=== PATIENT | female | born 1995 | race Caucasian/White ===

== ENCOUNTER 2018-12-20 21:05 | Emergency (ER) | payer OTHER ==
[2018-12-20 21:49] LABS: Urine Appearance Clear; Urine Bilirubin Negative (Negative); Urine Blood Negative (Negative); Urine Color Colorless; Urine Glucose Negative (Negative); Urine Ketones Negative (Negative); Urine Nitrite Negative (Negative); Urine Protein Negative (Negative); Urine Specific Gravity 1.002 (1.010-1.030); Urine Urobilinogen Negative (Negative)
--- NOTE | 2018-12-20 22:24 | ED ---
Psychiatric Complaint - HPI Summary HPI Summary: Patient is a 23 y/o female who presents with panic attack and anxiety. Patient has taken more Adderall today (40mg) than what is prescribed (30mg). Patient has also taken marijuana today. She refuses bloodwork. She previously had CP and SOB which have since resolved. She is calming down and denies depression and SI. She reports having a stressful time as a [employer] student. - History Of Current Complaint Chief Complaint: EDPsychosocial Time Seen by Provider: 12/20/18 22:07 Hx Obtained From: Patient Onset/Duration: Sudden Onset, Resolved Severity Initially: Severe Severity Currently: Mild Character: Anxious Aggravating Factor(s): Recent Stress, Drug Use - Adderall, marijuana Alleviating Factor(s): Nothing Has Suicidal: Denies: Thoughts Ingestion History: Type/Name Of Drug - Adderall, Amount Ingested - 40mg - Allergies/Home Medications Allergies/Adverse Reactions: Allergies Allergy/AdvReac Type Severity Reaction Status Date / Time No Known Allergies Allergy Verified 12/20/18 21:17 Home Medications: Home Medications Control 1 tab PO DAILY 12/20/18 [History Confirmed 12/20/18] Dextroamphetamine/Amphetamine [Adderall 30 mg Tablet] 30 mg PO BID 12/20/18 [ History Confirmed 12/20/18] PMH/Surg Hx/FS Hx/Imm Hx Endocrine/Hematology History: Denies: Hx Diabetes Cardiovascular History: Denies: Hx Coronary Artery Disease, Hx Hypertension Infectious Disease History: No Infectious Disease History: Denies: Traveled Outside the [place] in Last 30 Days - Family History Known Family History: Negative: Cardiac Disease, Hypertension, Diabetes - Social History Alcohol Use: None Substance Use Type: Reports: Marijuana Smoking Status (MU): Never Smoked Tobacco Review of Systems Positive: Chest Pain - Resolved Positive: Shortness Of Breath - Resolved Psychological: Other - Recent stress Positive: Anxious. Negative: Depressed, Other - Denies SI All Other Systems Reviewed And Are Negative: Yes Physical Exam - Summary Physical Exam Summary: Appearance: Well appearing, no pain distress Skin: warm, dry, reflects adequate perfusion Head/face: normal Eyes: EOMI, ABDULLAHI ENT: normal Neck: supple, non-tender Respiratory: CTA, breath sounds present Cardiovascular: RRR, pulses symmetrical Abdomen: non-tender, soft Musculoskeletal: normal, strength/ROM intact Neuro: normal, sensory motor intact, A&Ox3 Psych: anxious Triage Information Reviewed: Yes Vital Signs On Initial Exam: Initial Vitals Temp Pulse Resp BP Pulse Ox 96.7 F 84 17 0/0 100 12/20/18 21:08 12/20/18 21:08 12/20/18 21:08 12/20/18 21:08 12/20/18 21:08 Vital Signs Reviewed: Yes Diagnostics - Vital Signs Vital Signs Temp Pulse Resp BP Pulse Ox 12/20/18 21:08 96.7 F 84 17 0/0 100 - Laboratory Lab Results: Lab Results 12/20/18 Range/Units 21:38 Urine Color Colorless Urine Appearance Clear Urine pH 7.0 (5-9) Ur Specific [place] 1.002 L (1.010-1.030) Urine Protein Negative (Negative) Urine Ketones Negative (Negative) Urine Blood Negative (Negative) Urine Nitrate Negative (Negative) Urine Bilirubin Negative (Negative) Urine Urobilinogen Negative (Negative) Ur Leukocyte Esterase Negative (Negative) Urine Glucose Negative (Negative) Lab Statement: Any lab studies that have been ordered have been reviewed, and results considered in the medical decision making process. Course/Dx - Course Course Of Treatment: Patient is a 23 y/o female who presents to the ER with a panic attack. She has since calmed down but refuses blood work during the ED course. UA obtained. Patient is cleared for MHU at 2235. Patient will be discharged with dx of anxiety. mhe done She reports she was in ED just to get anxiety meds and there is no indication for benzos at present. - Differential Dx/Clinical Impression Differential Diagnosis/HQI/PQRI: Positive: Other - Anxiety Provider Diagnosis: Anxiety Discharge - Sign-Out/Discharge Documenting (check all that apply): Patient Departure - Discharge Patient Received Moderate/Deep Sedation with Procedure: No - Discharge Plan Condition: Stable Disposition: HOME Patient Education Materials: Anxiety (ED) Referrals: [facility] [Outside] - 3 Days [facility] [Outside] - If Needed Additional Instructions: RETURN TO THE EMERGENCY DEPARTMENT FOR ANY CHANGING OR WORSENING SYMPTOMS. - Billing Disposition and Condition Condition: STABLE Disposition: Home - Attestation Statements Document Initiated by Scribe: Yes Documenting Scribe: Corey Cardona Provider For Whom Scribe is Documenting (Include Credential): George Root MD Scribe Attestation: I, Corey Cardona, scribed for George Root MD on 12/21/18 at 0201. Scribe Documentation Reviewed: Yes Provider Attestation: The documentation as recorded by the [email or web address] accurately reflects the service I personally performed and the decisions made by me, George Root MD Status of Scribe Document: Viewed
[2018-12-21 00:50] VITALS: BP 0/0
== END 2018-12-21 00:49 | disposition home or self-care (01) ==
LOC: ED 21:05
DX: F41.0 Panic disorder [episodic paroxysmal anxiety] (principal)
CPT/HCPCS: 81003; 99284